=== PATIENT | male | born 2005 | race Caucasian/White ===

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

== ENCOUNTER → 2025-01-05 14:36 | Outpatient (CLI) | payer OTHER, SELFPAY ==
[2025-01-05 15:36] LABS: Influenza A - CEPHEID Flu A NEGATIVE (NEGATIVE); Influenza B - CEPHEID Flu B NEGATIVE (NEGATIVE); Respiratory Syncytial Virus Negative (Negative)
[2025-01-05 16:18] LABS: COVID-19 CEPHEID 4-PLEX PCR Negative (Negative)
== END ==
PROVIDERS: PCP Nurse Practitioner Pediatrics; Visit Provider Physician Assistant
DX: R05.1 Acute cough (principal); J02.9 Acute pharyngitis, unspecified
CPT/HCPCS: 0241U; 87070

== ENCOUNTER → 2025-01-05 15:35 | Outpatient (CLI) | payer OTHER, SELFPAY ==
[2025-01-05 17:32] LABS: Monotest Negative (Negative)
== END ==
LOC: LAB 15:36
PROVIDERS: Referring Provider Physician Assistant; Visit Provider Physician Assistant
DX: J02.9 Acute pharyngitis, unspecified (principal); R05.1 Acute cough
CPT/HCPCS: 0241U; 36415; 86318; 87070